=== PATIENT | female | born 1950 | race Asian ===

== ENCOUNTER → 2017-06-12 | Outpatient (CLI) | payer MEDICARE, OTHER ==
[2015-10-13 11:16] VITALS: BMI 29.3
[~2017-06-12] MED LIST: ACYC-50 PO; ALBU8.5H IH; ALL100 PO; ALLO100T70 PO; ASPI-1471 PO; ASPI-692 PO; ASPI-715 PO; ATOR10TA65 PO; ATOR40TA24 PO; BISA-229 PO; CHOL200022 PO; CIPDEXPT OT; CLON1 PO; CYAN500T38 PO; CYC10 PO; DEX4 PO; DIPH-740 PO; DOCU-416 PO; EZET1TAB64 PO; FLU45SYR25 IM ONLY; GABA-547 PO; GABA-549 PO; HYDR-2966 PO; HYDR-317 PO; HYDR12.558 PO; HYDR12.561 PO; HYDR2TAB74 PO; IRO150 PO; LANS1COM7 PO; LEVO-85 PO; LEVO250T55 PO; LIS5 PO; LISI-355 PO; LISI-362 PO; LISI-374 PO; LISI-553 PO; LOR1 PO; MAGN500T6 PO; MECL-81 PO; MELO-149 PO; MELO-150 PO; METH4TAB66 PO; METO-231 PO; METO25TA91 PO; METO25TA93 PO; MORP-1 PO; MORP-20 PO; MULT-1 PO; NAB500 PO; NAP250 PO; NEBI10TA4 PO; NEBI20TA4 PO; NITR0.4T3 SL; OMEP-125 PO; OMEP-137 PO; OMEP-218 PO; ONDA4TAB PO; OXYC-373 PO; OXYC-865 PO; PANT40TA65 PO; PER PO; PERCOCET; PNEU0.5D3 IM; POTA20TA10; POTA20TA12 PO; PRED20TA6 PO; PROC10TA4 PO; PROM-110 PO; SAL50R INH; SIMV-42 PO; SIMV-54 PO; TIOT4MIS3; TRA50 PO; TRAM-420 PO
--- NOTE | 2017-06-12 14:51 | RADIOLOGY IMAGING REPORT ---
FACILITY: [facility] PATIENT NAME: Lenoor Dupont : 1950 MR: [id number] V: [id number] EXAM DATE: ORDERING PHYSICIAN: SORAYA DANIEL TECHNOLOGIST: [place] [facility] [place] Leonor Dupont : 1950 Visit/Account:[id number] Date of Sevice: 06/12/2017 Exam type: FINGER RIGHT THUMB History: hit hand on wall, pain, swelling, contusion Comparison: None. Findings: There is a tiny opaque density projecting just lateral to the IP joint of the right thumb. This coul d are present small peritendinous calcification, the sequelae of old trauma or possibly a tiny avulsi on fracture fragment. Otherwise no evidence of acute fracture dislocation seen. IMPRESSION: 1. Tiny opaque density projecting just lateral to the IP joint of the right thumb may represent smal l peritendinous calcification, this cortical trauma or possibly a tiny avulsion fracture fragment Report Dictated By: Lidia Interiano MD at 06/12/2017 2:45 PM Report E-Signed By: Lidia Interiano MD at 06/12/2017 2:47 PM WSN:[email or web address]
== END ==
LOC: RAD 13:30
PROVIDERS: ATTEND Internal Medicine
DX: M79.644 Pain in right finger(s) (principal)

== ENCOUNTER → 2017-06-21 | Outpatient (CLI) | payer MEDICARE, OTHER ==
[2015-10-13 11:16] VITALS: BMI 29.3
--- NOTE | 2017-06-23 20:15 | RADIOLOGY IMAGING REPORT ---
FACILITY: [facility] - [place] PATIENT NAME: WIL ANGEL : [id number] MR: [id number] V: [id number] EXAM DATE: ORDERING PHYSICIAN: MANJINDER PANG TECHNOLOGIST: Tabatha Borja EXAMINATION:TWO-DIMENSIONAL ECHOCARDIOGRAPH REASON:HISTORY OF AORTIC ANEURYSM. ALSO SMALL CELL LUNG CARCINOMA. 2D Measurements (normal values in centimeters) LV endLV endRV endVent.LV PostAorticLeftPercent DiastolicSystolicDiastolicSeptumWallRootAtriumShortening (3.5-5.7)(0.9-2.6)(0.6-1.1)(0.6-1.1)(2.0-3.7)(1.9-4.0)(25-35%) [id number]% STROKE VOLUME: 26 mL ESTIMATED EJECTION FRACTION:70% PARASTERNAL LONG AXIS: Overall left ventricular function does appear to be normal. Right ventricle also appears to contract with no specific wall motion abnormalities noted. There is mild concentric left ventricular thickening noted. Color examination of the aortic valve revealed some aortic insufficiency. Color examination of the mitral valve revealed a trace of mitral insufficiency present. PARASTERNAL SHORT AXIS: Again overall left ventricular function appears to be normal. No specific wall motion abnormalities were noted. Mild concentric left ventricular thickening is noted. Aortic valve appears to be trileaflet in configuration with a trace of aortic insufficiency. Color examination of the pulmonic valve reveals a trace of pulmonic insufficiency present. APICAL FOUR AND TWO CHAMBER: Normal left ventricular ejection fraction. Aortic valve area was measured within normal range at 3.4 cm2, mitral valve area measured within normal range at 5.4 cm2. The left atrial and right atrial volumes were measured within normal ranges at 23 and 16 mL/m2. The TAPSE is measured at 1.3 indicating mild decrease in right ventricular function. Tricuspid regurgitation V-max is measured at 2.4 m/sec. Trace of mitral and tricuspid insufficiency is noted. Mild amount of aortic insufficiency is noted in this view. SUBCOSTAL VIEW: No pericardial effusion was noted. No atrial septal or ventricular septal defects were appreciated. The ascending aorta was measured at 5.1 cm. Doppler examination of the mitral valve in diastole does reveal the A wave greater than the E wave. Aortic insufficiency pressure halftime is measured at 668 msec. The medial and lateral E prime velocities are decreased. OVERALL IMPRESSION: 1. Normal left ventricular ejection fraction of 70% with a grade 1/4 decrease in diastolic function. 2. Mild right ventricular enlargement with the other chamber sizes being normal. 3. Mild concentric left ventricular thickening but no evidence for any outflow tract obstruction. No significant gradation through the left ventricle and no systolic anterior motion of the mitral valve leaflet. 4. Ascending aorta is mildly dilated at 4.1 cm. The aortic root is normal in size at 3.3 cm. 5. There is a trace of mitral insufficiency, a trace of tricuspid insufficiency with estimated right ventricular systolic pressure within normal range at 26 mm hg. No stenosis of these valves was noted. 6. A trileaflet aortic valve with mild aortic sclerosis but no stenosis and a mild amount of aortic insufficiency. 7. A trace amount of pulmonic insufficiency present. 8. Some decrease in right ventricular function as the TAPSE is measured at 1.3% indicating mild decrease in right ventricular function. 9. In comparison with the examination done on 05/11/16, the right ventricle is slightly increased in size and the ascending aorta is measured at 4.1 cm but no other significant change was noted. Dictated by: Loni Ridley M.D. on 06/21/2017 at 17:09 Transcribed by: URBAN on 06/21/2017 at 18:15 Approved by: Loni Ridley M.D. on 06/23/2017 at 20:14 [facility]
== END ==
LOC: US 10:58
PROVIDERS: ATTEND Internal Medicine
DX: I51.7 Cardiomegaly (principal); I34.0 Nonrheumatic mitral (valve) insufficiency; I07.1 Rheumatic tricuspid insufficiency; I35.8 Other nonrheumatic aortic valve disorders; I35.1 Nonrheumatic aortic (valve) insufficiency; I37.1 Nonrheumatic pulmonary valve insufficiency
CPT/HCPCS: 93306

== ENCOUNTER → 2017-07-29 | Outpatient (CLI) | payer MEDICARE, OTHER ==
[2015-10-13 11:16] VITALS: BMI 29.3
--- NOTE | 2017-07-30 08:15 | RADIOLOGY IMAGING REPORT ---
FACILITY: [facility] [place] PATIENT NAME: Leonor Dupont : 1950 MR: [id number] V: [id number] EXAM DATE: ORDERING PHYSICIAN: MANJINDER PANG TECHNOLOGIST: Location: [facility] - [place] Patient: Leonor Dupont : 1950 Visit/Account:[id number] Date of Sevice: 07/29/2017 EXAMINATION: Single isotope SPECT imaging with regadenoson infusion and gated SPECT imaging. DATE OF EXAMINATION: 07/29/17. DATE OF INTERPRETATION: 07/30/17. REQUESTING PHYSICIAN: MANJINDER PANG. INDICATION: The patient is a 66-year-old F evaluated for chest pain. PROCEDURE: After informed consent the patient received an intravenous injection of 12.9 mCi of Tc-99 m sestamibi followed at an appropriate time interval by rest imaging. The patient then subsequently received an intravenous infusion of 0.4 mg of regadenoson per protocol without complication. Resting heart rate was 56 bpm with a peak heart rate of 89 bpm. Blood pressure at rest was 123 / 85 and fol lowing infusion was 155 / 89. Baseline EKG demonstrates sinus rhythm. There were no EKG changes of ischemia following infusion. Symptoms were nonspecific. The patient then received an intravenous in jection of 29.0 mCi of Tc-99m sestamibi followed by stress imaging. RAW DATA: Examination of the summed raw data revealed a good quality study. MYOCARDIAL PERFUSION: The tomographic images demonstrate normal myocardial perfusion at rest. With s tress there is a medium-sized anterior defect that is moderate in severity. TID is calculated at 1.37 . GATED IMAGES: The gated images demonstrate normal ejection fraction 59% with normal wall motion and thickening. IMPRESSION: 1. Nondiagnostic Lexiscan stress ECG 2. Abnormal myocardial perfusion scan, with evidence of mid LAD ischemia. TID is positive at 1.37. 3. Normal LV systolic function; LVEF 59%. 4. Based on the results of this exam, the patient appears to be at intermediate risk for future cardi ovascular events. Report Dictated By: Clifton Diallo at 07/30/2017 8:09 AM Report E-Signed By: Clifton Diallo at 07/30/2017 8:11 AM WSN:[id number]
== END ==
LOC: NUC 02:41
PROVIDERS: ATTEND Internal Medicine
DX: R07.2 Precordial pain (principal)
CPT/HCPCS: 78452; 93017; A9500

== ENCOUNTER → 2017-08-06 | Outpatient (CLI) | payer MEDICARE, OTHER ==
[2015-10-13 11:16] VITALS: BMI 29.3
[2017-08-06 15:06] LABS: INR 0.97
== END ==
LOC: LAB 14:24
PROVIDERS: ATTEND Internal Medicine
DX: I20.0 Unstable angina (principal)
CPT/HCPCS: 36415; 82310; 82374; 82435; 82565; 82947; 84132; 84295; 84520; 85027; 85610

== ENCOUNTER 2017-08-26 13:00 | Outpatient (RCR) | payer MEDICARE, OTHER ==
[2015-10-13 11:16] VITALS: Wt 75.2 kg
[2017-08-23 08:07] VITALS: BP 142/96
[2017-08-23 08:33] LABS: PLATELET COUNT, AUTOMATED 190 K/uL (150-450)
--- NOTE | 2017-08-23 09:46 | RADIOLOGY IMAGING REPORT ---
FAC[place] [facility] [place]IENT NAME: Leonor Dupont : 1950 MR: [id number] V: [id number] EXAM DATE: ORDERING PHYSICIAN: MEGAN VALLES TECHNOLOGIST: Location: [facility] Patient: Leonor Dupont : 1950 Visit/Account:[id number] Date of Sevice: 08/23/2017 CHEST/AB/PELV W/OUT CONTRAST HISTORY: Lung cancer follow-up TECHNIQUE: CT thoracic inlet to the pubic symphysis obtained without IV contrast. One of the followi ng dose optimization techniques was utilized in the performance of this exam: automated exposure cont rol; adjustment of the mA and/or kV according to the patient's size; or use of an iterative reconstru ction technique. Specific details can be referenced in the facility's radiology CT exam operational policy. CONTRAST: None. COMPARISON: CT chest 10/16/[address] chest abdomen and pelvis 02/03/2016 FINDINGS: Lungs: There is a nodule in the superior segment of the right lower lobe, 1.2 cm (image 41/202), prev iously measuring 1.1 cm. There is a nodule in the superior segment right lower lobe that measures 1.5 x 0.8 cm (image 36/202), previously measuring 1.3 cm. In the left lung, there is a triangular-shaped area of atelectasis, which extends to the major fissure, unchanged from the prior study. Remaining l linda parenchyma is clear. Mediastinum: There is mild dilatation of the ascending thoracic aorta, measuring 4.2 cm transverse. T his is unchanged from the prior study. Descending thoracic aorta is normal size. The heart size is no rmal. Callus caseness seen in the coronary arteries. Musculoskeletal/soft tissues: There is no axillary adenopathy. Liver/gallbladder: The liver demonstrates normal attenuation without evidence of mass. The gallblad misty is normal. Spleen: Normal. Adrenals: Normal. Pancreas: Normal. Kidneys/: Both kidneys demonstrate normal attenuation without evidence of hydronephrosis or mass. Pelvis/Bladder: Urinary bladder and uterus are normal. GI: Small bowel colon are normal. There is a small gastric hiatal hernia. Vessels/nodes: The abdominal aorta is tortuous, normal in caliber. Atherosclerotic changes seen. Bones/soft tissues: Degenerative disc disease changes seen at L3-4. IMPRESSION: 1. There are 3 pulmonary nodules, 2 in the right lower lobe and one in the right upper lobe. The size s are not significant changed from 10/16/2016. 2. Linear scarring left upper lobe, stable. 3. Mild ascending thoracic aorta dilatation, stable. 4. Negative abdomen and pelvis CT. Recommend follow-up chest CT in one year. Report Dictated By: Alfred Persaud at 08/23/2017 9:33 AM Report E-Signed By: Alfred Persaud at 08/23/2017 9:42 AM WSN:[id number]
[~2017-08-26 13:00] MED LIST changes: +DEXTROSE 5%(*) 100 ML BAG 100 ML IVPB PRN; +LIDOCAINE/SOD BICARB 8.4% SYR ID PRN; +NS(*) 0.9% 100 ML BAG 100 ML IVPB PRN
[2017-08-26 13:09] VITALS: BP 126/82
--- NOTE | 2017-08-28 04:07 | [facility] ONCOLOGY NOTE ---
EVENT DATE: August 26, 2017 CHIEF COMPLAINT/REASON FOR VISIT The patient is a very pleasant 66-year-old female with a history of limited stage small cell lung cancer treated with curative intent here for followup. HISTORY OF PRESENT ILLNESS The patient returns. She continues to have no evidence of disease. We are hopeful that she had limited stage lung cancer with benign lesions elsewhere in the lung. She had repeat imaging and they show no change, raising the likelihood that these are benign lesions or scarred disease. Her weight has been stable. She had multiple side effects from gabapentin for her neuropathy, and feels better since stopping this. Her biggest concern today is shortness of breath, and I am concerned about her heart. She has a strong family history and continues to smoke. Discussed smoking cessation in detail today. Dr. Carson and Dr. Avalos with cardiology are completing an ongoing workup, looking into her vascular disease, and may need to consider bypass. Given the recent normal scan with stability, I think she is likely curative for small cell lung cancer, and it would be appropriate to move forward with any intervention, including catheterization attempted measures or bypass. She would like to avoid bypass, but I stressed to her that if they feel it is necessary and the cause of her symptoms is believed to be due to this, then I would pursue it. 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 Tobacco History She continues to smoke and her smokes. She previously reported only 3 cigarettes per day but reports this is increased Alcohol History No abuse Recreational Drug History She denies. REVIEW OF SYSTEMS CONSTITUTIONAL: No fevers, chills, considerable weight change. HEENT: No headache or vision changes. CARDIOVASCULAR: Positive chest pain. Some dyspnea on exertion. No significant edema. I am concerned about her heart. RESPIRATORY: No shortness of breath at rest, wheeze, cough. No hemoptysis. GASTROINTESTINAL: No nausea or vomiting. GENITOURINARY: No dysuria or hematuria. MUSCULOSKELETAL: Chronic back pain. ENDOCRINE: No cold or heat intolerance. PSYCHIATRIC: No anxiety or depression. LYMPHATIC: No concerning lumps or bumps. IMMUNOLOGIC: No issues with infection. SKIN: No concerning new lesions. The remainder of the review of systems is otherwise unremarkable. PHYSICAL EXAMINATION VITAL SIGNS: Blood pressure 126/82, pulse 79, respiratory rate 16, temperature 97.5 Fahrenheit, oxygen saturation 94% on room air. Weight 75.2 kg. Pain 0/10 , fatigue 5/10. GENERAL: Stable condition, resting comfortably in the chair. HEENT: Normocephalic, atraumatic. CARDIOVASCULAR: Regular rate and rhythm today. LUNGS: Clear. ABDOMEN: Soft, nontender. EXTREMITIES: No clubbing, cyanosis or edema. Remainder of physical exam is otherwise unchanged. IMPRESSION AND PLAN Mrs. Dupont is a very pleasant 66-year-old female with the followin. History of limited stage small cell lung cancer status post chemoradiation with curative intent in 2016. 2. Two right-sided 1 cm nodules that were negative by biopsy in November of 2016 being followed with close imaging. No evidence that these are malignant, and they are not changing. I do believe they may be related to her smoking, and I stressed the importance of smoking cessation again today. 3. Chronic obstructive pulmonary disease with continued tobacco use. 4. Coronary artery disease. I believe her biggest concern today is her coronary artery disease. We would like her to follow up with Dr. Carson and Dr. Avalos as planned later this month. I have stressed to her that I believe her cancer is under control and that it is now important to take care of whatever recommendations the cardiology team has for her. In my opinion, the likelihood of occult metastatic disease is very low, based on her recent imaging. I answered all of her many questions today. Billing: Return visit level 5. Total time 50 minutes, counseling time 35. High risk, high complexity. MTDD
== END 2017-09-04 15:05 | disposition home or self-care (01) ==
LOC: ONC 13:00
PROVIDERS: ATTEND Internal Medicine
DX: C34.90 Malignant neoplasm of unspecified part of unspecified bronchus or lung (principal); J98.11 Atelectasis; R91.8 Other nonspecific abnormal finding of lung field; J44.9 Chronic obstructive pulmonary disease, unspecified; I25.10 Atherosclerotic heart disease of native coronary artery without angina pectoris; R06.02 Shortness of breath; F17.210 Nicotine dependence, cigarettes, uncomplicated; R07.9 Chest pain, unspecified; R53.83 Other fatigue
CPT/HCPCS: 36415; 71250; 74176; 85025; G0463; 82040; 82247; 82310; 82374; 82435; 82565; 82947; 84075; 84132; 84155; 84295; 84450; 84460; 84520; 99212

== ENCOUNTER → 2017-09-10 | Outpatient (CLI) | payer MEDICARE, OTHER ==
[2015-10-13 11:16] VITALS: BMI 29.3
[~2017-09-10] MED LIST changes: -DEXTROSE 5%(*) 100 ML BAG 100 ML IVPB PRN; -LIDOCAINE/SOD BICARB 8.4% SYR ID PRN; -NS(*) 0.9% 100 ML BAG 100 ML IVPB PRN
[2017-09-10 15:02] LABS: INR 0.99
== END ==
LOC: LAB 14:22
PROVIDERS: ATTEND Internal Medicine
DX: I20.0 Unstable angina (principal)
CPT/HCPCS: 36415; 82310; 82374; 82435; 82565; 82947; 84132; 84295; 84520; 85027; 85610

== ENCOUNTER 2017-10-29 15:26 | Emergency (ER) | payer MEDICARE, OTHER ==
[2015-10-13 11:16] VITALS: Wt 66.0 kg
[~2017-10-29 15:26] MED LIST changes: +CLOP75TA43 PO; +PNEI IJ; +ROSU20TA13 PO; +ROSU40TA18 PO
--- NOTE | 2017-10-29 15:36 | ER Report ---
History and Physical Time Seen By MD: 15:35 HPI/ROS CHIEF COMPLAINT: Nausea, vomiting and near syncope HISTORY OF PRESENT ILLNESS: This is a 67-year-old female, sent from Dr. Jackson' s office, for nausea and vomiting and near syncope. Patient has a history of small cell lung cancer, radiation and chemotherapy cancer free 1 year. Patient states that she's had nausea and vomiting 2 weeks in addition to that she's had a nonproductive cough. She has had intermittent fevers at home. No aches or chills. No headaches or shortness of breath or chest pain. No diarrhea. No blood in the emesis. REVIEW OF SYSTEMS: Constitutional: As above. Eyes: No discharge. ENT: No sore throat. Cardiovascular: No chest pain, no palpitations. Respiratory: No cough, no shortness of breath. Gastrointestinal: As above. Genitourinary: No hematuria. Musculoskeletal: No back pain. Skin: No rashes. Neurological: No headache. Allergies: Coded Allergies: iodine (Verified Allergy, Intermediate, BLISTERS AND FUNES SKIN, 10/29/17) fish derived (Verified Allergy, Mild, ITCHING ALL OVER, HIVES, FACIAL SWELLING, 10/29/17) milk (Verified Allergy, Mild, LACTOSE INTOLERANT, 10/29/17) shellfish derived (Unverified Allergy, Unknown, hives, 10/29/17) prednisone (Verified Adverse Reaction, Intermediate, NAUSEA/VOMITING, 10/29) codeine (Verified Adverse Reaction, Mild, vomiting, 10/29/17) hydrocodone (Verified Adverse Reaction, Mild, vomiting, 10/29/17) Home Meds Active Scripts Albuterol Sulfate (VENTOLIN HFA) 18 Gm Inh, 2 PUFF INH Q4-6H Y for SHORTNESS OF BREATH, #1 INH Prov:CJ CHRISTENSEN INSPECTOR [employer]-BC 10/29/17 Ondansetron (ZOFRAN ODT) 4 Mg Tab.rapdis, 4 MG PO Q6H Y for NAUSEA/VOMITING, # 20 TAB.LUKE Prov:CJ CHRISTENSEN INSPECTOR [employer]GL[employer]-BC 10/29/17 Omeprazole (OMEPRAZOLE) 20 Mg Capsule., 1 CAP PO QDAY, #90 CAP 3 Refills Prov:SORAYA DANIEL MD 07/16/17 Hydrochlorothiazide (HYDROCHLOROTHIAZIDE) 25 Mg Tablet, 1 TAB PO QDAY, #90 TAB 3 Refills Prov:SORAYA DANIEL MD 06/12/17 Lisinopril (LISINOPRIL) 40 Mg Tablet, 1 TAB PO QDAY, #90 TAB 3 Refills Prov:SORAYA DANIEL MD 03/19/17 Tramadol Hcl (TRAMADOL HCL) 50 Mg Tablet, 1-2 TAB PO Q4-6H, #60 TAB 1 Refill Prov:SORAYA DANIEL MD 03/07/17 Allopurinol (ALLOPURINOL) 100 Mg Tablet, 1 TAB PO QDAY, #90 TAB 3 Refills Prov:SORAYA DANIEL MD 01/03/17 Nebivolol Hcl (BYSTOLIC) 20 Mg Tablet, 1 TAB PO QDAY, #90 TAB 4 Refills Prov:SORAYA DANIEL MD 01/02/17 Reported Medications Rosuvastatin Calcium (Rosuvastatin Calcium) 20 Mg Tablet, 1 TAB PO QHS 10/02/17 Nitroglycerin (NITROGLYCERIN) 0.4 Mg Tab.subl, 1 TAB SL Q5MIN Y for chest pain, TAB 10/01/17 Clopidogrel Bisulfate (PLAVIX) 75 Mg Tablet, 1 TAB PO QDAY, TAB 10/01/17 Tiotropium Br/Olodaterol HCl (Stiolto Respimat Inhal [place]) 4 Gm Mist.inhal, 2.5 MCG NA BID 12/17/16 Past Medical/Surgical History Patient has a past medical and surgical history of migraines, questionable heart attack, stents placed, angina, hypertension, hypercholesterolemia, pneumonia, COPD, bleeding ulcers, GERD, gout, back pain, chronic sinus and ear infections, wears glasses, small cell lung cancer, tubal ligation, right rotator cuff surgery, tonsillectomy. Reviewed Nurses Notes: Yes Hx Smoking: Yes (1-2 CIGS PER DAY AFTER DINNER) Smoking Status: Current: Every Day Smoker Exposure to Second Hand Smoke?: Yes Hx Substance Use Disorder: No Hx Alcohol Use: No Constitutional Vital Sign - Last 24 Hours 10/29/17 10/29/17 10/29/17 10/29/17 15:33 16:05 16:05 16:29 Temp 97.9 Pulse 56 49 Resp 14 16 B/P (MAP) 108/59 131/89 (103) Pulse Ox 92 95 O2 Delivery Room Air Room Air 10/29/17 10/29/17 10/29/17 10/29/17 16:41 16:45 16:56 17:00 Pulse 80 76 Resp 9 40 B/P (MAP) 110/74 (86) 99/82 (88) Pulse Ox 99 98 10/29/17 10/29/17 10/29/17 10/29/17 17:11 17:15 17:20 17:45 Pulse 79 88 Resp 24 44 B/P (MAP) 129/93 (105) 117/63 (81) Pulse Ox 96 99 10/29/17 17:50 Pulse 79 Pulse Ox 98 Intake and Output 10/29/17 10/29/17 10/30/17 15:00 23:00 07:00 Intake Total 1000 ml Balance 1000 ml Physical Exam General Appearance: The patient is alert, has no immediate need for airway protection and no signs of toxicity. Eyes: Pupils equal and round no pallor or injection. ENT, Mouth: Mucous membranes are dry. Right TM intact, pearly mcmahon, landmarks noted. Left TMs with an effusion, and scar tissue. Landmarks noted. No signs of injection. Respiratory: There are no retractions, diminished lung sounds throughout, slightly coarse in the bases bilaterally. Cardiovascular: Regular rate and rhythm, distant, no murmurs, clicks or rubs. Gastrointestinal: Abdomen is soft and non tender, no masses, bowel sounds normal. Neurological: Alert and oriented 4. Moving all extremities. Following all commands. No focal neuro deficits. Skin: Warm and dry, no rashes. Musculoskeletal: Neck is supple non tender. Extremities are nontender, nonswollen and have full range of motion. DIFFERENTIAL DIAGNOSIS: After history and physical exam differential diagnosis was considered for syncope including but not limited to vasovagal syncope, arrhythmia, dehydration, and blood loss. Medical Decision Making Data Points Result Diagram: 10/29/17 1600 10/29/17 1600 Laboratory Hematology Test 10/29/17 16:00 10/29/17 17:01 Red Blood Count 4.79 M/uL (4.17-5.56) Mean Corpuscular Volume 93.9 fL (80.0-96.0) Mean Corpuscular Hemoglobin 31.5 pg (26.0-33.0) Mean Corpuscular Hemoglobin Concent 33.5 g/dL (32.0-36.0) Red Cell Distribution Width 15.8 % (11.5-14.5) Mean Platelet Volume 10.2 fL (7.2-11.1) Neutrophils (%) (Auto) 72.9 % (39.4-72.5) Lymphocytes (%) (Auto) 13.3 % (17.6-49.6) Monocytes (%) (Auto) 11.2 % (4.1-12.4) Eosinophils (%) (Auto) 1.9 % (0.4-6.7) Basophils (%) (Auto) 0.7 % (0.3-1.4) Nucleated RBC Relative Count (auto) 0.1 /100WBC Neutrophils # (Auto) 4.7 K/uL (2.0-7.4) Lymphocytes # (Auto) 0.9 K/uL (1.3-3.6) Monocytes # (Auto) 0.7 K/uL (0.3-1.0) Eosinophils # (Auto) 0.1 K/uL (0.0-0.5) Basophils # (Auto) 0.0 K/uL (0.0-0.1) Nucleated RBC Absolute Count (auto) 0.01 K/uL Peripheral Blood Smear Yes Y/N Sodium Level 145 mmol/L (137-145) Potassium Level 4.1 mmol/L (3.5-5.0) Chloride Level 109 mmol/L (98-107) Carbon Dioxide Level 23 mmol/L (22-31) Blood Urea Nitrogen 73 mg/dl (7-18) Creatinine 2.60 mg/dl (0.52-1.04) Glomerular Filtration Rate Calc 18.4 Random Glucose 112 mg/dl (75-110) Calcium Level 9.9 mg/dl (8.4-10.2) Total Bilirubin 0.4 mg/dl (0.2-1.3) Aspartate Amino Transf (AST/SGOT) 218 U/L (0-35) Alanine Aminotransferase (ALT/SGPT) 301 U/L (0-56) Alkaline Phosphatase 95 U/L (0-126) Total Protein 7.4 gm/dl (6.3-8.2) Albumin 4.1 g/dl (3.5-5.0) Urine Color Yellow Urine Clarity Clear Urine pH 5.0 pH (4.8-9.5) Urine Specific Okay 1.019 Urine Protein Negative mg/dL (NEGATIVE) Urine Glucose (UA) Negative mg/dL (NEGATIVE) Urine Ketones Negative mg/dL (NEGATIVE) Urine Blood Negative (NEGATIVE) Urine Nitrite Negative (NEGATIVE) Urine Bilirubin Negative (NEGATIVE) Urine Urobilinogen Negative mg/dL (0.2-1.9) Urine Leukocyte Esterase Negative (NEGATIVE) Urine RBC 1 /HPF (0-2/HPF) Urine WBC 2 /HPF (0-5/HPF) Urine Squamous Epithelial Cells Many /LPF (</=FEW) Urine Bacteria Negative /HPF (NONE-FEW) Urine Hyaline Casts Few /LPF (NONE-FEW) Urine Mucus None /HPF (NONE-FEW) Chemistry Test 10/29/17 16:00 10/29/17 17:01 White Blood Count 6.5 k/uL (4.5-11.0) Red Blood Count 4.79 M/uL (4.17-5.56) Hemoglobin 15.1 g/dL (12.0-16.0) Hematocrit 45.0 % (34.0-47.0) Mean Corpuscular Volume 93.9 fL (80.0-96.0) Mean Corpuscular Hemoglobin 31.5 pg (26.0-33.0) Mean Corpuscular Hemoglobin Concent 33.5 g/dL (32.0-36.0) Red Cell Distribution Width 15.8 % (11.5-14.5) Platelet Count 219 K/uL (150-450) Mean Platelet Volume 10.2 fL (7.2-11.1) Neutrophils (%) (Auto) 72.9 % (39.4-72.5) Lymphocytes (%) (Auto) 13.3 % (17.6-49.6) Monocytes (%) (Auto) 11.2 % (4.1-12.4) Eosinophils (%) (Auto) 1.9 % (0.4-6.7) Basophils (%) (Auto) 0.7 % (0.3-1.4) Nucleated RBC Relative Count (auto) 0.1 /100WBC Neutrophils # (Auto) 4.7 K/uL (2.0-7.4) Lymphocytes # (Auto) 0.9 K/uL (1.3-3.6) Monocytes # (Auto) 0.7 K/uL (0.3-1.0) Eosinophils # (Auto) 0.1 K/uL (0.0-0.5) Basophils # (Auto) 0.0 K/uL (0.0-0.1) Nucleated RBC Absolute Count (auto) 0.01 K/uL Peripheral Blood Smear Yes Y/N Glomerular Filtration Rate Calc 18.4 Calcium Level 9.9 mg/dl (8.4-10.2) Total Bilirubin 0.4 mg/dl (0.2-1.3) Aspartate Amino Transf (AST/SGOT) 218 U/L (0-35) Alanine Aminotransferase (ALT/SGPT) 301 U/L (0-56) Alkaline Phosphatase 95 U/L (0-126) Total Protein 7.4 gm/dl (6.3-8.2) Albumin 4.1 g/dl (3.5-5.0) Urine Color Yellow Urine Clarity Clear Urine pH 5.0 pH (4.8-9.5) Urine Specific Okay 1.019 Urine Protein Negative mg/dL (NEGATIVE) Urine Glucose (UA) Negative mg/dL (NEGATIVE) Urine Ketones Negative mg/dL (NEGATIVE) Urine Blood Negative (NEGATIVE) Urine Nitrite Negative (NEGATIVE) Urine Bilirubin Negative (NEGATIVE) Urine Urobilinogen Negative mg/dL (0.2-1.9) Urine Leukocyte Esterase Negative (NEGATIVE) Urine RBC 1 /HPF (0-2/HPF) Urine WBC 2 /HPF (0-5/HPF) Urine Squamous Epithelial Cells Many /LPF (</=FEW) Urine Bacteria Negative /HPF (NONE-FEW) Urine Hyaline Casts Few /LPF (NONE-FEW) Urine Mucus None /HPF (NONE-FEW) Urinalysis Test 10/29/17 17:01 Urine Color Yellow Urine Clarity Clear Urine pH 5.0 pH (4.8-9.5) Urine Specific Okay 1.019 Urine Protein Negative mg/dL (NEGATIVE) Urine Glucose (UA) Negative mg/dL (NEGATIVE) Urine Ketones Negative mg/dL (NEGATIVE) Urine Blood Negative (NEGATIVE) Urine Nitrite Negative (NEGATIVE) Urine Bilirubin Negative (NEGATIVE) Urine Urobilinogen Negative mg/dL (0.2-1.9) Urine Leukocyte Esterase Negative (NEGATIVE) Urine RBC 1 /HPF (0-2/HPF) Urine WBC 2 /HPF (0-5/HPF) Urine Squamous Epithelial Cells Many /LPF (</=FEW) Urine Bacteria Negative /HPF (NONE-FEW) Urine Hyaline Casts Few /LPF (NONE-FEW) Urine Mucus None /HPF (NONE-FEW) EKG/Imaging EKG Interpretation 12 lead EKG: Time of EKG 1609. Rhythm: Sinus bradycardia, 48 bpm. [place]: normal QRS: normal ST segments: No ST depression or elevation identified. No significant changes from the 05/21/2016 EKG. Imaging Location: [facility] Patient: Leonor Dupont : 1950 Visit/Account:[id number] Date of Sevice: 10/29/2017 EXAMINATION: Chest 2 Views HISTORY: Cough for 2 weeks. History of lung cancer. COMPARISON: 06/01/2016. FINDINGS: Stable parenchymal scarring and volume loss in the superior upper lobes. No new focal consolidation. No pleural effusion or pneumothorax. Normal heart size and pulmonary vascularity. Aortic calcification. The central venous port has been removed since the prior exam. No acute osseous findings in the chest. IMPRESSION: No evidence of acute cardiopulmonary disease. Report Dictated By: Azam Ferguson MD at 10/29/2017 5:11 PM Report E-Signed By: Azam Ferguson MD at 10/29/2017 5:13 PM WSN:[id number] ED Course/Re-evaluation Clinical Indication for ER IV: Hydration, IV Access ED Course The patient was admitted to room. History and physical obtained. Differential diagnoses were considered. An IV was started. A CBC, CMP were obtained. CBC unremarkable. Chemistry showing BUN 73, creatinine 2.6. These are elevated from the patient's previous BUN and creatinine on September 10, BUN was 32, creatinine is 1.7. AST today to 18 ALT 301. I did review these results with the patient and did explain to her that I was concerned about the jump in her kidney function I did tell her I did like to keep her here and give her another liter of fluid and repeat the chemistry to see if the renal function improved. The patient states she just wants to go home and she'll follow-up with her primary care provider. I did tell her that if she wishes to leave she must follow-up in 1-2 days to have repeat blood work. The two-view chest x-ray was negative. EKG showing sinus bradycardia Patient is in agreement with this plan care and was discharged home. She states she is feeling much better at discharge. I did sent an Rx in for Zofran and MARIBELL inhailer for her cough. 10/29/2017 5:17:31 pm I did discuss the laboratory findings with the patient's specifically her elevated BUN/creatinine I did tell the patient that I do give her another liter fluid possibly recheck her GFR patient said that she would prefer to go home and she is feeling much better. Decision to Disposition Date: October 29, 2017 Decision to Disposition Time: 17:49 Depart Departure Latest Vital Signs Vital Signs Date Time Temp Pulse Resp B/P (MAP) Pulse Ox O2 Delivery O2 Flow Rate FiO2 10/29/17 17:50 79 98 10/29/17 17:45 117/63 (81) 10/29/17 17:20 44 10/29/17 16:05 Room Air 10/29/17 15:33 97.9 Impression: Primary Impression: Nausea & vomiting Additional Impression: Cough Condition: Improved Disposition: HOME OR SELF-CARE Referrals: SORAYA DANIEL MD (PCP) New Scripts Albuterol Sulfate (VENTOLIN HFA) 18 Gm Inh 2 PUFF INH Q4-6H Y for SHORTNESS OF BREATH, #1 INH Prov: CJ CHRISTENSEN 10/29/17 Ondansetron (ZOFRAN ODT) 4 Mg Tab.rapdis 4 MG PO Q6H Y for NAUSEA/VOMITING, #20 TAB.LUKE Prov: CJ CHRISTENSEN 10/29/17 Patient Instructions: Acute Cough (ED), Acute Nausea and Vomiting (ED) Additional Instructions: Clear liquid diet for 24 hours then slowly progress to a soft and bland diet. Get plenty of rest. Use the inhaler and nausea medications as prescribed. Follow up with Dr. Peña in 1-2 days to have your blood work rechecked, specifically your kidney function. Return to the ED for any other concerns or worsening symptoms. Problem Qualifiers Primary Impression: Nausea & vomiting Vomiting type: unspecified Vomiting Intractability: non-intractable Qualified Codes: R11.2 - Nausea with vomiting, unspecified CJ CHRISTENSEN October 29, 2017 15:36
[2017-10-29] MEDS ORDERED: NS(*) 0.9% 1000 ML BAG 1,000 ML IV ONE ×2 (15:39→17:15)
[2017-10-29] MEDS ORDERED: ONDANSETRON 4 MG/2 ML VIAL IVP ONE (15:40)
[2017-10-29] MEDS ORDERED: ALBUTEROL/IPRATROPIUM 3 ML NEB NEB ONE (16:00)
[2017-10-29 16:14] LABS: PLATELET COUNT, AUTOMATED 219 K/uL (150-450)
--- NOTE | 2017-10-29 16:16 | EKG ---
FACILITY: [facility] PATIENT NAME: WIL ANGEL : [id number] MR: [id number] V: [id number] EXAM DATE: ORDERING PHYSICIAN: CJ CHRISTENSEN TECHNOLOGIST: JEFFERY Hannon Reason : SOB Blood Pressure : / mmHG Vent. Rate : 048 BPM Atrial Rate : 048 BPM P-R Int : 176 ms QRS Dur : 070 ms QT Int : 444 ms P-R-T Axes : 081 076 079 degrees QTc Int : 396 ms Marked sinus bradycardia Nonspecific ST abnormality T inversion consistent with septal ischemia vs normal variant When compared with ECG of 21-MAY-2016 13:30, No significant change was found Confirmed by SALIMA HIGUERA ([id number]) on 10/29/2017 10:38:05 PM Referred By: MED Confirmed By:SALIMA HIGUERA
--- NOTE | 2017-10-29 17:17 | RADIOLOGY IMAGING REPORT ---
FACILITY: [facility] PATIENT NAME: Leonor Dupnot : 1950 MR: [id number] V: [id number] EXAM DATE: ORDERING PHYSICIAN: CJ CHRISTENSEN TECHNOLOGIST: Location: [facility] Patient: Leonor Dupont : 1950 Visit/Account:[id number] Date of Sevice: 10/29/2017 EXAMINATION: Chest 2 Views HISTORY: Cough for 2 weeks. History of lung cancer. COMPARISON: 06/01/2016. FINDINGS: Stable parenchymal scarring and volume loss in the superior upper lobes. No new focal consolidation. No pleural effusion or pneumothorax. Normal heart size and pulmonary vascularity. Aortic calcification. The central venous port has been r emoved since the prior exam. No acute osseous findings in the chest. IMPRESSION: No evidence of acute cardiopulmonary disease. Report Dictated By: Azam Ferguson MD at 10/29/2017 5:11 PM Report E-Signed By: Azam Ferguson MD at 10/29/2017 5:13 PM WSN:[id number]
[2017-10-29] MEDS ORDERED: ALB18R INH (17:30)
[2017-10-29] MEDS ORDERED: ONDA4TAB PO (17:30)
[2017-10-29 17:45] VITALS: BP 117/63
== END 2017-10-29 17:59 | disposition home or self-care (01) ==
LOC: ER 15:40
DX: R11.2 Nausea with vomiting, unspecified (principal); R05 Cough; R00.1 Bradycardia, unspecified
CPT/HCPCS: 81001; 85025; 93005; 94640; 96361; 96374; 99284; J2405; J7030; J7620; 71046; 82040; 82247; 82310; 82374; 82435; 82565; 82947; 84075; 84132; 84155; 84295; 84450; 84460; 84520

== ENCOUNTER → 2017-11-14 | Outpatient (CLI) | payer MEDICARE, OTHER ==
[2015-10-13 11:16] VITALS: BMI 29.3
[~2017-11-14] MED LIST changes: +ALB18R INH
== END ==
LOC: LAB 08:20
PROVIDERS: ATTEND Internal Medicine
DX: E78.00 Pure hypercholesterolemia, unspecified (principal)
CPT/HCPCS: 36415; 82310; 82374; 82435; 82465; 82565; 82947; 83718; 84132; 84295; 84478; 84520

== ENCOUNTER 2018-02-17 12:27 | Outpatient (RCR) | payer MEDICARE, OTHER ==
[2015-10-13 11:16] VITALS: Wt 76.7 kg
[2018-02-12 13:19] VITALS: BP 112/64
[2018-02-12 13:22] LABS: PLATELET COUNT, AUTOMATED 195 K/uL (150-450)
[~2018-02-17 12:27] MED LIST changes: +CHOL200018 PO; -CHOL200022 PO; +RANI150C17 PO; -ROSU20TA13 PO; +ROSU20TA5 PO
[2018-02-17 12:32] VITALS: BP 140/83
--- NOTE | 2018-02-17 14:58 | RADIOLOGY IMAGING REPORT ---
FACILITY: [facility] [place] PATIENT NAME: Leonor Dupont : 1950 MR: [id number] V: [id number] EXAM DATE: ORDERING PHYSICIAN: MEGAN VALLES TECHNOLOGIST: Location: [facility] Patient: Leonor Dupont : 1950 Visit/Account:[id number] Date of Sevice: 02/17/2018 CHEST W/O CONTRAST History: History of lung cancer TECHNIQUE: Contiguous axial images were performed through the chest to the level of the adrenal gla nds. No IV contrast was administered. Coronal and sagittal reformatting was also performed. Dose Lowe ring Technique One of the following dose optimization techniques was utilized in the performance of this exam: Autom ated exposure control; adjustment of the mA and/or kV according to the patient's size; or use of an i terative reconstruction technique. Specific details can be referenced in the facility's radiology C T exam operational policy. COMPARISON STUDIES: August 23, 2017. Lungs / Pleura: Left suprahilar consolidation appears relatively unchanged Pleural parenchymal scarring in the right upper lobe with central peribronchial thickening appears un changed. There is a 1.3 x 0.8 cm spiculated mass superior medial aspect of the right lower lobe appears well t otally unchanged when measured in the same tissue planes. There is additional 1.1 x 0.6 cm spiculate d mass in the mid anterior right lower lobe that appears relatively unchanged with surrounding distal airspace consolidation. Small groundglass opacity in the anterior lateral aspect right lower lobe a ppears stable Mediastinum/nodes: Evaluation of mediastinum is severely limited due to lack of intravenous contrast Heart and vessels: Is mild aneurysmal dilatation of the ascending thoracic aorta measuring 4.2 cm in AP dimension. Vascular calcifications and mural thrombus is identified in the descending thoracic a [place]. There are coronary artery calcifications and stents. Musculoskeletal / Body wall: negative. Upper abdomen: There is a small hiatal hernia IMPRESSION: The left suprahilar consolidation appears relatively unchanged. The two spiculated masses in the rig ht lower lobe also appear relatively unchanged Report Dictated By: Lidia Interiano MD at 02/17/2018 1:52 PM Report E-Signed By: Lidia Interiano MD at 02/17/2018 2:55 PM WSN:[id number]
--- NOTE | 2018-02-18 17:40 | [facility] ONCOLOGY NOTE ---
EVENT DATE: February 17, 2018 CHIEF COMPLAINT/REASON FOR VISIT Mrs. Dupont is a very pleasant, 67-year-old female with a history of limited stage small-cell lung cancer, treated with curative intent, here for followup. HISTORY OF PRESENT ILLNESS Ms. Dupont returns. She continues to have no evidence of disease, but it has been six months since her last imaging. We are hopeful that she had limited stage lung cancer with benign lesions elsewhere. Repeat imaging showed no change, and she had a biopsy which showed a benign lesion. This was done in November 2015. Thus, we currently thing she has benign lung nodules that need to be followed at least annually, but no evidence of cancer at this time. More pertinently, she has coronary vascular disease and had stents placed earlier in 2018 with great improvement of her symptoms. She had atypical pain with tooth pain that improved immediately following the stent placement. She has now for the past few weeks had similar chest pains and toothaches again. She is due to see Dr. Carson to consider repeat coronary angiogram and potentially an additional stent to the posterior circulation by report. I believe it is pertinent that we rule out that she has not had relapse as the cause of her symptoms, and so we need to get a CT scan. She has a history of renal insufficiency, and so we would need to do that scan without contrast. We were able to get this done this afternoon at 1:30. PAST MEDICAL HISTORY 1. Small-cell carcinoma of lung. 2. Port catheter in place. 3. Radicular low back pain. SOCIAL HISTORY This is a 67-year-old female. She is and has adult children. 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 She continues to smoke, and her smokes. She previously reported only three cigarettes per day, but reports this has increased. No alcohol abuse. She denies recreational drugs. REVIEW OF SYSTEMS CONSTITUTIONAL: No fevers, chills. Considerable weight change. HEENT: No headache or vision changes. CARDIOVASCULAR: Positive chest pain. Some dyspnea on exertion. No significant edema. I am concerned about her heart. RESPIRATORY: No shortness of breath at rest, wheeze, cough. No hemoptysis. GASTROINTESTINAL: No nausea or vomiting. GENITOURINARY: No dysuria or hematuria. MUSCULOSKELETAL: Chronic back pain. ENDOCRINE: No cold or heat intolerance. PSYCHIATRIC: No anxiety or depression. LYMPHATIC: No concerning lumps or bumps. IMMUNOLOGIC: No issues with infection. SKIN: No concerning new lesions. The remainder of the review of systems is otherwise unremarkable. PHYSICAL EXAMINATION VITAL SIGNS: Blood pressure 140/83, pulse 69, respiratory rate 16, temperature 97.5 Fahrenheit, oxygen saturation 95% on room air. Weight 76.7 kg and stable. Pain 10/10 in the low back, which is her chronic pain, but she also notes some chest pain and tooth pain as well that is mild. Fatigue 7/10. The pain in the chest is brought on by exertion. She has taken some nitroglycerin pills in the last few days. GENERAL: Stable condition, resting comfortably in the chair at rest today. HEENT: Normocephalic, atraumatic. LUNGS: Clear. ABDOMEN: Soft, obese, nontender. PSYCHIATRIC: Normal mood and affect. She is her usual cheerful self again today. EXTREMITIES: No clubbing, cyanosis, or edema. Full physical exam deferred today due to amount of time spent in counseling, coordination of care, and attempts to get the CT scan done as quickly as possible. IMPRESSION/PLAN Mrs. Dupont is a very pleasant, 67-year-old female with the followin. History of limited stage small-cell lung cancer status post chemoradiation with curative intent in 2016. 2. Right-sided 1 cm nodules that were biopsied in November 2016 and found to be benign. We currently believe that she has benign lung lesions as well as the history of lung cancer, but no active disease. 3. Chronic obstructive pulmonary disease with continued tobacco use. 4. Coronary artery disease. Her coronary artery disease is her most pressing issue most likely today. Will get a CT scan later today, and I have ordered this stat. If we see no signs of progression, then we will get her back to Dr. Carson as soon as possible. We also discussed her 's health issues, and review of his labs indicate that he may have polycythemia vera. He is a veterans [employer] patient, and we will work to get authorization to see him within the next month. He has had two phlebotomies in close proximity to each other. The first one he felt better, but the second one he felt worse, likely due to the fact that it was within a week of the first. I answered all of their many questions today. DAVIDING Return visit level 4. Total time 30 minutes, counseling time 20. MTDD
[2018-04-03] MEDS ORDERED: CLOP75TA43 PO (14:17)
== END 2018-04-09 09:58 | disposition home or self-care (01) ==
LOC: ONC 12:27
PROVIDERS: ATTEND Internal Medicine
DX: C34.90 Malignant neoplasm of unspecified part of unspecified bronchus or lung (principal); I25.10 Atherosclerotic heart disease of native coronary artery without angina pectoris; F17.210 Nicotine dependence, cigarettes, uncomplicated; Z92.21 Personal history of antineoplastic chemotherapy; Z92.3 Personal history of irradiation; R91.8 Other nonspecific abnormal finding of lung field
CPT/HCPCS: 36415; 71250; 85025; G0463; 82040; 82247; 82310; 82374; 82435; 82565; 82947; 84075; 84132; 84155; 84295; 84450; 84460; 84520; 99212

== ENCOUNTER → 2018-03-18 | Outpatient (CLI) | payer MEDICARE, OTHER ==
[2015-10-13 11:16] VITALS: BMI 29.3
== END ==
LOC: LAB 11:40
PROVIDERS: ATTEND Internal Medicine
DX: I25.110 Atherosclerotic heart disease of native coronary artery with unstable angina pectoris (principal)
CPT/HCPCS: 36415; 82310; 82374; 82435; 82565; 82947; 84132; 84295; 84520; 85027

== ENCOUNTER 2018-05-12 15:00 | Outpatient (RCR) | payer MEDICARE, OTHER ==
[2015-10-13 11:16] VITALS: BMI 29.3
[2018-04-23 16:02] VITALS: BP_SYST 120; BP_SYST 128; BP_DIAS 78; BP_DIAS 86
--- NOTE | 2018-04-23 16:40 | CARDIAC REHAB PLAN OF CARE ---
Physician: Rob De La Cruz III, MD Patient is being seen: Bekah Frazier Medical Diagnosis: PTCA x 4 Date of Onset: 03/20/18 Date of Initial Evaluation: 04/23/18 INTERVENTIONS: Due Date: 05/23/18 Patient Assessment: Patient is a 67 year old female who comes to cardiac rehab following PTCA x 4 (2 stents placed on 09/13/27 and 2 placed on 03/20/18). She has a cardiac history of MR; paroxysmal SVT; HTN; and High Cholesterol. Other health history includes lung cancer (currently in remission); dizziness; and COPD. Previous back surgery for herniated disks (L4/L5) still continues to cause back pain, limiting daily activities. Lifestyle reports she is currently a stress-related smoker, eats a diet high in sodium, and currently works at [employer]. She has a strong personality and is very forgetful and has difficult time retaining information. Goals for the program include wanting to lose weight (~30lbs) and being fit enough to be able to walk around [place] . Exercise Assessment: The patient reports that she is not currently exercising which is confirmed when noting her extremely deconditioned cardiovascular fitness. During her 6-Minute Walk Test she walked a total of 600ft for an average speed of 1.13mph. She reported SOB +1 and her HR ranged between 79- 86bpm with SPO2 > 90%. She stopped at minute 5 due to fatigue and leg soreness. Exercise Plan: Goals: Our goal by the end of the program will be to have the patient exercising on average 45+ minutes/session of continuous aerobic exercise. We will aim by the end of the program to be achieving between 4-5 METs on average. Outside of rehab the patient should aim to start exercising on days off, including walking and using her elliptical at home. Exercise Prescription: Mode: NuStep and Recumbent Bike Frequency: 3 days/week (MWF) Duration: We will start at 15 minutes of continuous exercise. By the end of the month we have the goal to achieve 40+ minutes/session on average. Intensity: THR 80-90bpm; METs 2.0-3.0 for the first month. Once duration goals have been met, we will focus on increasing intensity. Education: Education will focus on how exercise can help 1. Improve cardiovascular function, 2. Increase cardiovascular health in conjunction with her PTCA procedures, 3. Assist with weight loss, 4. Increase quality of life and level of independence to do the things she wants to do. Exercise Reassessment (Date: ): Exercise Discharge/Follow-Up (Date: ): Nutrition Assessment: Patients inability to clearly express and retain information was most evident when talking about her diet. She reports eating a primarily diet, but also reports she loves steak, burgers, and cheese. Her confirms her claim of eating lots of fruits and vegetables. Her diet appears high in sodiumwhich is a concern for her CAD and HTN. She does not eat breakfast but does snack throughout the day, the only meal she regularly eats being dinner. She does not have a clear understanding of how to read food labels. Nutrition Plan: Goals: Our goals will be to help the patient be able to read food labels and to help her lower her sodium intake. Intervention: Intervention will include involvement with her . We will provide information at rehab and take home information/recipes and provide opportunity for her to practice reading food labels. Education: Our first goal will be to help the patient understand how to read food labels, focusing on Fiber, Added Sugar, Protein, and Sodium. Nutrition Reassessment (Date: ): Nutrition Discharge/Follow-Up (Date: ): Psychosocial Assessment: Upon completing the Hospital Anxiety and Depression Scale (HADS) assessment the patient ranks severe in both depression (04/30) and anxiety (04/30). While she does not appear depressed upon my initial evaluation, she does appear high strung and prone to anxiety. On more than one occasion she mentioned on anxiety and stress affects her greatly, with smoking and crocheting being her only stress relieving outletwith an emphasis on smoking. She has a very strong personality and likes to voice her opinionwith great honesty. According to HADS, her biggest comments were that she feels restless and frightened often. She appears to have a good support system at home through her and extended family. Psychosocial Plan: Goals: Our primary goal throughout cardiac rehab will be to help reduce her anxiety and help her manage her stress levels in a more heart friendly fashion. Intervention: Our intervention will be working with her and family to provide positive social support and reassurance. We will also help her to develop proper stress management tools and the ability to identify when those stressful situations are arising and address them quickly before they get out of hand. Education: Education will focus on other forms of stress management aside from smoking, e.g. denise, meditation, exercise, etc. We can aid her in trying these methods to find which one works best for her. Psychosocial Reassessment (Date: ): Psychosocial Discharge/Follow-Up (Date: ): Tobacco Cessation Assessment: The patient currently smokes irregularly. She reports only smoking when she feels stressed and the amount that she smokes is directly correlated with how stressed she feels and for how long. Tobacco Cessation Plan: Goals: One of our primary goals for her heart health in general will be to help her quit smoking all together by the end of her program. Intervention: Our intervention will also aim to help her and her quit smoking togetherwith social support as a motivation factor. We will try to help them find a proper outlet for smoking cessation outside of quitting cold turkey. Education: Education will aim towards why smoking is bad for your heart/overall health and why it should be one of their primary goals together. We will aim to provide information on other health alternatives to smoking and aid in their attempt. Tobacco Cessation Reassessment (Date: ): Tobacco Cessation Discharge/Follow-Up (Date: ): Physician Signature: Date: MTDD
[2018-04-28 16:09] VITALS: BP 120/82
[2018-04-28 16:10] VITALS: BP 114/70
[2018-05-05 16:24] VITALS: BP 110/70
[2018-05-05 16:25] VITALS: BP 104/76
[2018-05-09 17:26] VITALS: BP 110/62
[2018-05-09 17:27] VITALS: BP 100/68
[~2018-05-12 15:00] MED LIST changes: +FLU180SY11 IM
[2018-05-12 16:49] VITALS: BP 142/92
[2018-05-12 16:50] VITALS: BP 130/88
[2018-06-09] MEDS ORDERED: HYDR-2966 PO (09:41)
== END 2018-05-12 18:00 | disposition home or self-care (01) ==
LOC: CARD 15:00
PROVIDERS: ATTEND Internal Medicine Interventional Cardiology
DX: I25.2 Old myocardial infarction (principal); Z95.5 Presence of coronary angioplasty implant and graft; I10 Essential (primary) hypertension; J44.9 Chronic obstructive pulmonary disease, unspecified; Z85.118 Personal history of other malignant neoplasm of bronchus and lung; Z72.0 Tobacco use
CPT/HCPCS: 93798

== ENCOUNTER → 2018-07-17 | Outpatient (CLI) | payer MEDICARE, OTHER ==
[2015-10-13 11:16] VITALS: BMI 29.3
== END ==
LOC: LAB 15:19
PROVIDERS: ATTEND Nurse Practitioner
DX: L28.0 Lichen simplex chronicus (principal)
CPT/HCPCS: 88305

== ENCOUNTER → 2018-07-31 | Outpatient (CLI) | payer MEDICARE, OTHER ==
[2015-10-13 11:16] VITALS: BMI 29.3
== END ==
LOC: LAB 13:26
PROVIDERS: ATTEND Surgery
DX: L72.0 Epidermal cyst (principal)
CPT/HCPCS: 88305

== ENCOUNTER → 2018-10-17 | Outpatient (CLI) | payer MEDICARE, OTHER ==
[2015-10-13 11:16] VITALS: BMI 29.3
[~2018-10-17] MED LIST changes: +ESCI10TA8 PO; +LOSA-57 PO
[2018-10-17 10:53] LABS: PLATELET COUNT, AUTOMATED 240 K/uL (150-450)
== END ==
LOC: LAB 10:32
PROVIDERS: ATTEND Internal Medicine
DX: C34.90 Malignant neoplasm of unspecified part of unspecified bronchus or lung (principal); J44.9 Chronic obstructive pulmonary disease, unspecified; I25.10 Atherosclerotic heart disease of native coronary artery without angina pectoris; I10 Essential (primary) hypertension; F41.8 Other specified anxiety disorders
CPT/HCPCS: 36415; 81001; 82040; 82247; 82310; 82374; 82435; 82465; 82565; 82947; 83036; 83718; 84075; 84132; 84155; 84295; 84443; 84450; 84460; 84478; 84520; 84550; 85025

== ENCOUNTER → 2018-11-06 | Outpatient (CLI) | payer MEDICARE, OTHER ==
[2015-10-13 11:16] VITALS: BMI 29.3
== END ==
LOC: LAB 14:56
PROVIDERS: ATTEND Surgery
DX: C44.712 Basal cell carcinoma of skin of right lower limb, including hip (principal); B07.9 Viral wart, unspecified
CPT/HCPCS: 88305

== ENCOUNTER → 2018-11-06 | Outpatient (CLI) | payer MEDICARE, OTHER ==
[2015-10-13 11:16] VITALS: BMI 29.3
== END ==
LOC: RESP 07-18 00:45 → LAB 10:34
PROVIDERS: ATTEND Surgery
DX: Z02.9 Encounter for administrative examinations, unspecified (principal)

== ENCOUNTER → 2018-11-19 | Outpatient (CLI) | payer MEDICARE, OTHER ==
[2015-10-13 11:16] VITALS: BMI 29.3
[~2018-11-19] MED LIST changes: -CYAN500T38 PO; +CYAN500T39 PO; +ESCI20TA8 PO; -OMEP-125 PO; +OMEP-126 PO
--- NOTE | 2018-11-19 16:11 | RADIOLOGY IMAGING REPORT ---
FACILITY: [facility] PATIENT NAME: Leonor Dupont : 1950 MR: [id number] V: [id number] EXAM DATE: ORDERING PHYSICIAN: MARIAN CULVER TECHNOLOGIST: Location: [facility] Patient: Leonor Dupont : 1950 Visit/Account:[id number] Date of Sevice: 11/19/2018 Exam type: US VENOUS LOWER EXT LT History: hematoma LLE Comparison: None. Findings: Left lower extremity veins were imaged including the left common femoral vein, greater saphenous vein , superficial femoral vein, popliteal vein, posterior tibial vein and anterior tibial vein and perone al vein revealing no evidence of intraluminal thrombi the veins were compressible and demonstrated au gmentation IMPRESSION: 1. No sonographic evidence DVT involving the left lower extremity veins Report Dictated By: Lidia Interiano MD at 11/19/2018 4:07 PM Report E-Signed By: Lidia Interiano MD at 11/19/2018 4:08 PM WSN:[email or web address]
== END ==
LOC: US 15:02
PROVIDERS: ATTEND Urology
DX: J44.9 Chronic obstructive pulmonary disease, unspecified (principal); T14.8XXA Other injury of unspecified body region, initial encounter; N18.9 Chronic kidney disease, unspecified; R05 Cough; C34.90 Malignant neoplasm of unspecified part of unspecified bronchus or lung